=== PATIENT | female | born 1965 | race Caucasian/White ===

== ENCOUNTER 2020-07-07 19:14 | Inpatient (IN) | payer MEDICAID ==
[~2020-07-07] VITALS: Ht 162.6 cm; Wt 82.1 kg
[2020-07-07 20:04] LABS: BASOPHILS 0.4 % (0-2); EOSINOPHILS 2.7 % (0-7); HEMATOCRIT 27.3 % (36.0-48.0); HEMOGLOBIN 8.8 g/dL (12-16); IMMATURE GRANULOCYTES 0.2 % (0-5); LYMPHOCYTES 26.5 % (15-50); MCH 30.8 pg (26.0-34.0); MCHC 32.2 g/dL (31.0-37.0); MCV 95.5 fL (80.0-100.0); MEAN PLATELET VOLUME 10.9 fL (7.4-10.4); MONOCYTES 5.8 % (2-11); NEUTROPHIL ABS# 3.65 10x3/uL (1.56-6.13); NEUTROPHILS 64.4 % (40-80); PLATELET COUNT 176 10x3/uL (130-400); RBC 2.86 10x6/uL (4.00-5.40); RDW 12.7 % (11.5-14.5); WBC 5.7 10x3/uL (4.8-10.8)
[2020-07-07 20:25] LABS: UDS - AMPHET NEGATIVE QUAL (NEGATIVE); UDS - BARB NEGATIVE QUAL (NEGATIVE); UDS - BENZO NEGATIVE QUAL (NEGATIVE); UDS - COCAINE NEGATIVE QUAL (NEGATIVE); UDS - OPIATE NEGATIVE QUAL (NEGATIVE); UDS - PCP NEGATIVE QUAL (NEGATIVE); UDS - THC POSITIVE QUAL (NEGATIVE)
[2020-07-07 20:29] LABS: BACTERIA MANY HPF (NONE SEEN); BILIRUBIN NEGATIVE (NEGATIVE); KETONE NEGATIVE (NEGATIVE); NITRITE POSITIVE (NEGATIVE); UROBILINOGEN NORMAL mg/dL (< 2)
[2020-07-07 20:58] LABS: ALBUMIN 3.6 g/dL (3.4-5.0); ALKALINE PHOSPHATASE 62 U/L (30-120); ALT (SGPT) 17 U/L (10-68); BILIRUBIN - TOTAL 0.32 mg/dL (0.2-1.3); C-REACTIVE PROTEIN 1.1 mg/dL (0.0-0.9); CARBON DIOXIDE 33.1 mmol/L (21.0-32.0); CHLORIDE - SERUM 102 mmol/L (98-107); CREATINE KINASE 69 UL (21-215); CREATININE - SERUM 8.4 mg/dL (0.6-1.3); GLUCOSE 142 mg/dL (74-106); LIPASE 232 U/L (73-393); MAGNESIUM - SERUM 2.5 mg/dL (1.8-2.4); POTASSIUM - SERUM 4.6 mmol/L (3.5-5.1); PRO BNP 1035 pg/mL (0-125); PROTEIN - SERUM 7.7 g/dL (6.4-8.2); SODIUM 140 mmol/L (136-145); THYROID STIMULATING HORMONE 0.84 uIU/mL (0.36-3.74); eGFR NON AFRICAN AMERICAN 5 mL/min (90-120)
[2020-07-07 20:59] LABS: CALC OSMOLALITY 318 mosm/kg (275-300); CALCIUM 12.7 mg/dL (8.5-10.1); TROPONIN-I < 0.017 ng/mL (0.000-0.060); UREA NITROGEN 119 mg/dL (7-18)
[2020-07-07] MEDS ORDERED: PHOSLO667 MG PO (21:06)
[2020-07-07] MEDS ORDERED: ISOSORBIDE DINI20 MG PO (21:07)
[2020-07-07] MEDS ORDERED: FUROSEMIDE20 MG PO (21:07)
[2020-07-07] MEDS ORDERED: ROCALTROL0.5 MCG PO (21:07)
[2020-07-07] MEDS ORDERED: CENTRUM SILVER1 EAC3 PO (21:08)
[2020-07-07] MEDS ORDERED: COREG 3.1253.125 MG PO (21:08)
[2020-07-07] MEDS ORDERED: HYDRALAZINE HCL25 MG PO (21:08)
[2020-07-07] MEDS ORDERED: KLONOPIN1 MG PO (21:09)
[2020-07-07] MEDS ORDERED: SEROQUEL25 MG PO (21:10)
[2020-07-07] MEDS ORDERED: VENTOLIN HFA [SP8 GM INH (22:18)
[2020-07-08] VITALS (7 sets, daily range): BP systolic 128–155; BP diastolic 76–89; BMI 31.1
[2020-07-08 06:14] LABS: BASOPHILS 0.2 % (0-2); EOSINOPHILS 3.7 % (0-7); HEMOGLOBIN 7.9 g/dL (12-16); LYMPHOCYTE ABS# 1.51 10x3/uL (1.18-3.74); LYMPHOCYTES 30.9 % (15-50); MCH 30.4 pg (26.0-34.0); MCHC 31.6 g/dL (31.0-37.0); MCV 96.2 fL (80.0-100.0); MEAN PLATELET VOLUME 11.2 fL (7.4-10.4); MONOCYTES 7.2 % (2-11); NEUTROPHIL ABS# 2.84 10x3/uL (1.56-6.13); PLATELET COUNT 186 10x3/uL (130-400); RDW 12.7 % (11.5-14.5); RETIC 1.08 % (0.45-2.28); WBC 4.9 10x3/uL (4.8-10.8)
[2020-07-08 06:33] LABS: % SATURATION 21 % (15-55); IRON 46 ug/dl (35-150); TOTAL IRON BIND CAPACITY 216 ug/dl (260-445); UNSAT IRON BIND CAPACITY 170 ug/dl (150-375)
[2020-07-08 07:02] LABS: ALBUMIN 3.1 g/dL (3.4-5.0); BILIRUBIN - TOTAL 0.24 mg/dL (0.2-1.3); CALCIUM 11.5 mg/dL (8.5-10.1); CARBON DIOXIDE 30.7 mmol/L (21.0-32.0); MAGNESIUM - SERUM 2.4 mg/dL (1.8-2.4); PHOSPHOROUS 6.3 mg/dL (2.5-4.9); PROTEIN - SERUM 6.6 g/dL (6.4-8.2)
[2020-07-08 07:12] LABS: ANION GAP 10.9 mmol/L (8-16); POTASSIUM - SERUM 3.6 mmol/L (3.5-5.1)
[2020-07-08 08:53] LABS: APTT 28.5 SECONDS (22.8-39.4)
[2020-07-08 08:54] LABS: INR 1.12 (0.85-1.17); PROTIME 13.3 SECONDS (11.6-15.0)
[2020-07-09] VITALS: BP 130/84
[2020-07-09 04:00] VITALS: BP 132/78
[2020-07-09 06:42] LABS: ALBUMIN 2.9 g/dL (3.4-5.0); ANION GAP 12.2 mmol/L (8-16); BILIRUBIN - TOTAL 0.23 mg/dL (0.2-1.3); CALCIUM 10.4 mg/dL (8.5-10.1); CARBON DIOXIDE 26.5 mmol/L (21.0-32.0); CREATININE - SERUM 7.5 mg/dL (0.6-1.3); MAGNESIUM - SERUM 2.5 mg/dL (1.8-2.4); PHOSPHOROUS 6.7 mg/dL (2.5-4.9); POTASSIUM - SERUM 3.7 mmol/L (3.5-5.1); PROTEIN - SERUM 6.3 g/dL (6.4-8.2)
[2020-07-09 07:02] LABS: BASOPHILS 0.2 % (0-2); EOSINOPHILS 3.3 % (0-7); HEMATOCRIT 23.6 % (36.0-48.0); IMMATURE GRANULOCYTES 0.2 % (0-5); LYMPHOCYTE ABS# 1.61 10x3/uL (1.18-3.74); LYMPHOCYTES 35.2 % (15-50); MCH 30.4 pg (26.0-34.0); MCHC 31.8 g/dL (31.0-37.0); MCV 95.5 fL (80.0-100.0); MEAN PLATELET VOLUME 11.1 fL (7.4-10.4); MONOCYTES 8.7 % (2-11); NEUTROPHILS 52.4 % (40-80); PLATELET COUNT 163 10x3/uL (130-400); RBC 2.47 10x6/uL (4.00-5.40); RDW 12.6 % (11.5-14.5); WBC 4.6 10x3/uL (4.8-10.8)
[2020-07-09 07:04] LABS: HEMOGLOBIN 7.5 g/dL (12-16)
[2020-07-09 08:57] VITALS: BP 143/99
[2020-07-09 12:21] VITALS: BP 131/79
--- NOTE | 2020-07-09 13:11 | NUR ---
STARTED 1 UNIT PRBC'S WITH 20G TO RT. F/A WITH NO S/S OF INFECTION/INFILTRATION
[2020-07-09 16:09] VITALS: Ht 162.6 cm; Wt 82.1 kg
[2020-07-09 16:48] VITALS: BP 125/78
[2020-07-09 20:13] VITALS: BP 140/88
[2020-07-10 04:00] VITALS: BP 138/82
[2020-07-10 05:37] LABS: BASOPHILS 0.2 % (0-2); EOSINOPHILS 3.4 % (0-7); HEMATOCRIT 27.8 % (36.0-48.0); HEMOGLOBIN 8.9 g/dL (12-16); LYMPHOCYTE ABS# 1.67 10x3/uL (1.18-3.74); LYMPHOCYTES 37.4 % (15-50); MCH 29.8 pg (26.0-34.0); MEAN PLATELET VOLUME 11.1 fL (7.4-10.4); MONOCYTES 6.9 % (2-11); NEUTROPHIL ABS# 2.33 10x3/uL (1.56-6.13); NEUTROPHILS 52.1 % (40-80); PLATELET COUNT 159 10x3/uL (130-400); RDW 13.5 % (11.5-14.5); WBC 4.5 10x3/uL (4.8-10.8)
[2020-07-10 05:38] LABS: RBC 2.99 10x6/uL (4.00-5.40)
[2020-07-10 06:18] LABS: ALBUMIN 2.9 g/dL (3.4-5.0); ANION GAP 15.8 mmol/L (8-16); BILIRUBIN - TOTAL 0.22 mg/dL (0.2-1.3); CALCIUM 9.4 mg/dL (8.5-10.1); CARBON DIOXIDE 24.4 mmol/L (21.0-32.0); CREATININE - SERUM 7.1 mg/dL (0.6-1.3); MAGNESIUM - SERUM 2.4 mg/dL (1.8-2.4); PHOSPHOROUS 7.3 mg/dL (2.5-4.9); POTASSIUM - SERUM 4.2 mmol/L (3.5-5.1)
[2020-07-10 08:36] VITALS: BP 140/89
[2020-07-10 12:39] VITALS: BP 150/87
[2020-07-10 16:51] VITALS: BP 136/87
--- NOTE | 2020-07-10 19:27 | NUR ---
PATIENT RESTING IN BED WITH NO S/S OF DISTRESS AND DENIES NEEDS AT THIS TIME. BED IN LOWEST POSITION AND CALL LIGHT IN REACH. ENCOURAGED THE PATIENT TO CALL WITH NEEDS.
[2020-07-10 20:15] VITALS: BP 135/92
[2020-07-11 04:00] VITALS: BP 148/79
[2020-07-11 04:40] LABS: BASOPHILS 0.2 % (0-2); EOSINOPHILS 3.4 % (0-7); HEMATOCRIT 30.5 % (36.0-48.0); HEMOGLOBIN 9.8 g/dL (12-16); IMMATURE GRANULOCYTES 0.2 % (0-5); LYMPHOCYTE ABS# 1.21 10x3/uL (1.18-3.74); LYMPHOCYTES 23.9 % (15-50); MCH 29.9 pg (26.0-34.0); MCHC 32.1 g/dL (31.0-37.0); MEAN PLATELET VOLUME 10.9 fL (7.4-10.4); MONOCYTES 7.1 % (2-11); NEUTROPHIL ABS# 3.31 10x3/uL (1.56-6.13); NEUTROPHILS 65.2 % (40-80); PLATELET COUNT 170 10x3/uL (130-400); RBC 3.28 10x6/uL (4.00-5.40); RDW 13.3 % (11.5-14.5); WBC 5.1 10x3/uL (4.8-10.8)
[2020-07-11 05:07] LABS: ANION GAP 16.2 mmol/L (8-16); BILIRUBIN - TOTAL 0.16 mg/dL (0.2-1.3); CALCIUM 9.7 mg/dL (8.5-10.1); CREATININE - SERUM 6.7 mg/dL (0.6-1.3); MAGNESIUM - SERUM 2.5 mg/dL (1.8-2.4); PHOSPHOROUS 6.4 mg/dL (2.5-4.9); POTASSIUM - SERUM 4.2 mmol/L (3.5-5.1); PROTEIN - SERUM 6.8 g/dL (6.4-8.2)
[2020-07-11 08:28] VITALS: BP 140/81
[2020-07-11 12:01] VITALS: BP 137/86
[2020-07-11 16:12] VITALS: BP 128/72
[2020-07-11 23:34] VITALS: BP 177/101
[2020-07-12 01:35] VITALS: BP 144/82
[2020-07-12 06:19] VITALS: BP 143/97
[2020-07-12 06:36] LABS: ALBUMIN 2.6 g/dL (3.4-5.0); ANION GAP 15.5 mmol/L (8-16); BILIRUBIN - TOTAL 0.29 mg/dL (0.2-1.3); CALCIUM 8.8 mg/dL (8.5-10.1); CARBON DIOXIDE 21.8 mmol/L (21.0-32.0); CREATININE - SERUM 6.3 mg/dL (0.6-1.3); MAGNESIUM - SERUM 2.3 mg/dL (1.8-2.4); PHOSPHOROUS 5.9 mg/dL (2.5-4.9); POTASSIUM - SERUM 4.3 mmol/L (3.5-5.1); PROTEIN - SERUM 5.9 g/dL (6.4-8.2)
[2020-07-12 08:00] LABS: BASOPHILS 0.2 % (0-2); HEMATOCRIT 26.6 % (36.0-48.0); HEMOGLOBIN 8.4 g/dL (12-16); IMMATURE GRANULOCYTES 0.2 % (0-5); LYMPHOCYTE ABS# 1.07 10x3/uL (1.18-3.74); LYMPHOCYTES 25.2 % (15-50); MCH 29.6 pg (26.0-34.0); MCHC 31.6 g/dL (31.0-37.0); MCV 93.7 fL (80.0-100.0); MEAN PLATELET VOLUME 11.1 fL (7.4-10.4); MONOCYTES 6.8 % (2-11); NEUTROPHIL ABS# 2.69 10x3/uL (1.56-6.13); NEUTROPHILS 63.6 % (40-80); PLATELET COUNT 150 10x3/uL (130-400); RBC 2.84 10x6/uL (4.00-5.40); RDW 13.2 % (11.5-14.5); WBC 4.2 10x3/uL (4.8-10.8)
[2020-07-12 09:36] VITALS: BP 150/93
[2020-07-12 12:32] VITALS: BP 144/72
[2020-07-12 13:09] LABS: SPE - A/G RATIO 1.2 (0.7-1.7); SPE - ALBUMIN 3.2 g/dL (2.9-4.4); SPE - ALPHA-1 GLOBULIN 0.2 g/dL (0.0-0.4); SPE - ALPHA-2 GLOBULIN 0.6 g/dL (0.4-1.0); SPE - BETA GLOBULIN 0.8 g/dL (0.7-1.3); SPE - M-SPIKE Not Observed g/dL (Not Observed); SPE - TOTAL PROTEIN 5.8 g/dL (6.0-8.5)
[2020-07-12 16:56] VITALS: BP 140/70
[2020-07-12 20:00] VITALS: BP 157/94
[2020-07-13 04:00] VITALS: BP 148/83
--- NOTE | 2020-07-13 07:11 | NUR ---
PATIENT COMPLAINED OF KNEE PAIN AND I NOTIFIED GILBERT MOTA AND HE ORDERED DEREROL 25 MG IV ONE TIME, IT APPEARED TO HELP THE PAIN, SHE APPEARED TO REST WELL THROUGH THE NIGHT
[2020-07-13 07:37] LABS: BASOPHILS 0.2 % (0-2); EOSINOPHILS 3.5 % (0-7); HEMATOCRIT 24.4 % (36.0-48.0); HEMOGLOBIN 7.9 g/dL (12-16); IMMATURE GRANULOCYTES 0.2 % (0-5); LYMPHOCYTE ABS# 1.12 10x3/uL (1.18-3.74); LYMPHOCYTES 27.9 % (15-50); MCH 30.4 pg (26.0-34.0); MCHC 32.4 g/dL (31.0-37.0); MCV 93.8 fL (80.0-100.0); MEAN PLATELET VOLUME 10.8 fL (7.4-10.4); MONOCYTES 8.5 % (2-11); NEUTROPHIL ABS# 2.39 10x3/uL (1.56-6.13); NEUTROPHILS 59.7 % (40-80); PLATELET COUNT 135 10x3/uL (130-400); RDW 13.3 % (11.5-14.5)
[2020-07-13 07:46] LABS: ALBUMIN 2.8 g/dL (3.4-5.0); ANION GAP 17.4 mmol/L (8-16); BILIRUBIN - TOTAL 0.24 mg/dL (0.2-1.3); CALCIUM 8.3 mg/dL (8.5-10.1); CREATININE - SERUM 5.6 mg/dL (0.6-1.3); MAGNESIUM - SERUM 2.4 mg/dL (1.8-2.4); POTASSIUM - SERUM 4.4 mmol/L (3.5-5.1); PROTEIN - SERUM 5.7 g/dL (6.4-8.2)
[2020-07-13 09:55] VITALS: BP 145/84
[2020-07-13 12:06] VITALS: BP 145/86
--- NOTE | 2020-07-13 13:43 | NUR ---
Nutrition follow-up: Diet order: Renal PO intake ~70% average of last 9 meals labs reviewed; PO4: 6.0 +BM Wt: 180# PO intake if fair to good at most meals Will continue to provide food choices and honor food preferences within diet restrictions. RDN follow-up/reassess 07/19/20
[2020-07-13 17:28] VITALS: BP 148/96
[2020-07-13 20:00] VITALS: BP 154/97
--- NOTE | 2020-07-13 21:00 | NUR ---
PT SITTING UP IN BED WITHOUT DISTRESS, AOX4. DENIES NEEDS AT THIS TIME. CL IN REACH
--- NOTE | 2020-07-13 21:09 | NUR ---
0700 BEDSIDE REPORT RECEIVED ASSESSMENT COMPLETE AWAKE ALERT
--- NOTE | 2020-07-13 21:09 | NUR ---
0900 PROVIDED WARM PACKS AND PLACED ON PTS KNEES PT STATED THAT FELT BETTER THAN PAIN MEDS
--- NOTE | 2020-07-13 21:10 | NUR ---
1300 PROVIDED FRESH WARM PACKS FOR PT'S KNEES DAUGHTER REMAINS AT BEDSIDE PROVIDING SUPPORT
[2020-07-14] VITALS: BP 140/79
[2020-07-14 04:00] VITALS: BP 128/75
[2020-07-14 06:55] LABS: BASOPHILS 0.2 % (0-2); EOSINOPHILS 3.6 % (0-7); HEMATOCRIT 26.7 % (36.0-48.0); HEMOGLOBIN 8.6 g/dL (12-16); IMMATURE GRANULOCYTES 0.2 % (0-5); LYMPHOCYTE ABS# 1.22 10x3/uL (1.18-3.74); LYMPHOCYTES 29.2 % (15-50); MCH 30.2 pg (26.0-34.0); MCHC 32.2 g/dL (31.0-37.0); MCV 93.7 fL (80.0-100.0); MEAN PLATELET VOLUME 11.1 fL (7.4-10.4); NEUTROPHIL ABS# 2.37 10x3/uL (1.56-6.13); NEUTROPHILS 56.8 % (40-80); PLATELET COUNT 157 10x3/uL (130-400); RBC 2.85 10x6/uL (4.00-5.40); RDW 13.4 % (11.5-14.5); WBC 4.2 10x3/uL (4.8-10.8)
[2020-07-14 07:25] LABS: ALBUMIN 2.8 g/dL (3.4-5.0); ANION GAP 16.5 mmol/L (8-16); BILIRUBIN - TOTAL 0.19 mg/dL (0.2-1.3); CALCIUM 8.3 mg/dL (8.5-10.1); CREATININE - SERUM 5.4 mg/dL (0.6-1.3); POTASSIUM - SERUM 4.5 mmol/L (3.5-5.1); PROTEIN - SERUM 6.3 g/dL (6.4-8.2)
[2020-07-14 08:38] VITALS: BP 156/98
[2020-07-14 13:20] VITALS: BP 142/103
[2020-07-14 20:00] VITALS: BP 149/90
--- NOTE | 2020-07-14 20:00 | NUR ---
PT SITTING UP IN BED WITHOUT DISTRESS, AOX4. DENIES PAIN OR NEEDS AT THIS TIME. CL IN REACH
[2020-07-15 04:00] VITALS: BP 132/76
[2020-07-15 06:18] LABS: BASOPHILS 0.3 % (0-2); EOSINOPHILS 3.3 % (0-7); HEMATOCRIT 28.2 % (36.0-48.0); HEMOGLOBIN 8.7 g/dL (12-16); IMMATURE GRANULOCYTES 0.3 % (0-5); LYMPHOCYTES 30.5 % (15-50); MCH 29.7 pg (26.0-34.0); MCHC 30.9 g/dL (31.0-37.0); MEAN PLATELET VOLUME 12.1 fL (7.4-10.4); MONOCYTES 8.7 % (2-11); NEUTROPHIL ABS# 2.24 10x3/uL (1.56-6.13); NEUTROPHILS 56.9 % (40-80); PLATELET COUNT 137 10x3/uL (130-400); RBC 2.93 10x6/uL (4.00-5.40); RDW 13.5 % (11.5-14.5); WBC 3.9 10x3/uL (4.8-10.8)
[2020-07-15 06:34] LABS: MCV 96.2 fL (80.0-100.0)
[2020-07-15 06:38] LABS: ALBUMIN 2.8 g/dL (3.4-5.0); ANION GAP 18.7 mmol/L (8-16); BILIRUBIN - TOTAL 0.12 mg/dL (0.2-1.3); CALCIUM 8.1 mg/dL (8.5-10.1); CARBON DIOXIDE 19.3 mmol/L (21.0-32.0); CREATININE - SERUM 4.9 mg/dL (0.6-1.3); PROTEIN - SERUM 6.4 g/dL (6.4-8.2)
--- NOTE | 2020-07-15 07:28 | NUR ---
ALERT AND ORIENTED. ASSESSMENT COMPLETE. CALL ROBBINS AND PERSONAL ITEMS IN REACH. BED LOW. WILL CONTINUE TO MONITOR.
[2020-07-15 08:44] VITALS: BP 151/88
[2020-07-15 12:27] VITALS: BP 132/90
--- NOTE | 2020-07-15 13:42 | MORECARE ---
CASE MANAGEMENT DISCHARGE SUMMARY PATIENT: BETH NEWELL UNIT: [id number] ADM DATE: 07/07/20 AGE: 55 : 65 SEX: F ROOM/BED: D.2224 AUTHOR: BRANDIN,DOC PHYSICIAN: REFERRING PHYSICIAN: NEWTON BECERRA MD DATE OF SERVICE: 07/15/20 Case Management Discharge Planning Summary CT Patient Name: BETH NEWELL Attending MD : BRISA BECERRA, Medical Record: [id number] Encounter : [id number] Facility : [address] [place] [address] Admission Date : 121:01 Center Discharge Date : [address] [place] [address] Date of : DC Plan ID : [id number] Age/Sex/Martia : 55/ F/M Printed on : 07/15/20 13:41 CT DCP Review Details Anticipated D/C: Expected LOS : Case Status : INITIATED - Initial Reviewe: [id number] Alessandra Hernandez Initial Review: 07/07/2020 Planned Disposi: - Final Discharge: - Final Reviewer : : Final Review : DCP Focus Questions & Answers [facility] BETH NEWELL MR#: [id number] /Age/Sex/[id number]-Kql-45 /55/F /M Attending Physician Name: Mariaa [id number] Patient Account:[id number] [facility] Page -1 of 1 All edits/amendments must be made on the electronic document DICTATION DATE: 07/15/20 1341 FAMILY MEDIATOR: MALIKA 07/15/20 1341 RPT#: [id number] DC DATE: STATUS: ADM IN [facility] [address] [place] [address] END OF REPORT
[2020-07-15 17:32] VITALS: BP 160/99
[2020-07-15 20:00] VITALS: BP 132/90
[2020-07-16 04:00] VITALS: BP 133/56
[2020-07-16 05:40] LABS: BASOPHILS 0.5 % (0-2); EOSINOPHILS 2.9 % (0-7); HEMATOCRIT 27.7 % (36.0-48.0); HEMOGLOBIN 8.6 g/dL (12-16); IMMATURE GRANULOCYTES 0.8 % (0-5); LYMPHOCYTE ABS# 1.34 10x3/uL (1.18-3.74); LYMPHOCYTES 34.8 % (15-50); MCH 29.8 pg (26.0-34.0); MCV 95.8 fL (80.0-100.0); MEAN PLATELET VOLUME 11.6 fL (7.4-10.4); MONOCYTES 9.1 % (2-11); NEUTROPHILS 51.9 % (40-80); PLATELET COUNT 148 10x3/uL (130-400); RBC 2.89 10x6/uL (4.00-5.40); RDW 13.6 % (11.5-14.5); WBC 3.9 10x3/uL (4.8-10.8)
[2020-07-16 05:58] LABS: ALBUMIN 2.9 g/dL (3.4-5.0); ANION GAP 18.2 mmol/L (8-16); BILIRUBIN - TOTAL 0.24 mg/dL (0.2-1.3); CALCIUM 7.9 mg/dL (8.5-10.1); CARBON DIOXIDE 20.3 mmol/L (21.0-32.0); CREATININE - SERUM 4.6 mg/dL (0.6-1.3); POTASSIUM - SERUM 4.5 mmol/L (3.5-5.1); PROTEIN - SERUM 6.4 g/dL (6.4-8.2)
--- NOTE | 2020-07-16 06:19 | NUR ---
Pt is sitting in bed watching TV and sipping coffee. Pt c/o discomfort to joints in knees and elbows when coughing but, otherwise, has had no c/o pain to this nurse. Slept well except with checks.
--- NOTE | 2020-07-16 07:58 | NUR ---
ALERT AND ORIENTED. ASSESSMENT COMPLETE. BED LOW. CALL ROBBINS AND PERSONAL ITEMS IN REACH. WILL CONTINUE TO MONITOR.
[2020-07-16 08:02] VITALS: BP 156/98
--- NOTE | 2020-07-16 13:14 | NUR ---
IV REMOVED FROM RFA FOR DC WITH TIP INTACT. TELE REMOVED AND RETURNED TO [facility]ULO AT MONITORS. PATIENT WAITING RIDE AND DC PAPERWORK. PATIENT STATES IF UROLOGY DOESN'T CALL BACK WITH AN APPOINTMENT PRIOR TO RIDE COMING TO HOSPITAL, SHE WILL CALL SUNDAY. DOES NOT WANT TO WAIT FOR CALL BACK. DC NURSES SUPERVISOR [employer] AND BUSINESS [employer] VICE PRESIDENT HUBERT NOTIFIED.
--- NOTE | 2020-07-16 14:25 | NUR ---
DC EDUCATION PROVIDED BOTH WRITTEN AND VERBAL. VERBALIZED UNDERSTANDING. DENIES FURTHER QUESTIONS. WAITING RIDE.
--- NOTE | 2020-07-16 15:20 | NUR ---
PATIENT DC HOME WITH DAUGHTER WITH ALL BELONGINGS.
--- NOTE | 2020-07-17 17:52 | MORECARE ---
CASE MANAGEMENT DISCHARGE SUMMARY PATIENT: BETH NEWELL UNIT: [id number] ADM DATE: 07/07/20 AGE: 55 : 65 SEX: F ROOM/BED: D.2224 AUTHOR: BRANDIN,DOC PHYSICIAN: REFERRING PHYSICIAN: NEWTON BECERRA MD DATE OF SERVICE: 07/17/20 Case Management Discharge Planning Summary CT Patient Name: BETH NEWELL Attending MD : BRISA BECERRA, Medical Record: [id number] Encounter : [id number] Facility : [address] [place] [address] Admission Date : 121:01 Center Discharge Date : 07/16/[address] [place] [address] Date of : DC Plan ID : [id number] Age/Sex/Martia : 55/ F/M Printed on : 07/17/20 17:50 CT DCP Review Details Anticipated D/C: Expected LOS : Case Status : INITIATED - Initial Reviewe: [id number] Alessandra Hernandez Initial Review: 07/07/2020 Planned Disposi: - Final Discharge: - Final Reviewer : : Final Review : DCP [employer] Questions & Answers [facility] BETH NEWELL MR#: [id number] /Age/Sex/Hqqwod55-Dpq-13 /55/F /M Attending Physician Name: HERNAN [id number] Patient Account:[id number] [facility] Page -1 of 1 All edits/amendments must be made on the electronic document DICTATION DATE: 07/17/201749 PSYCHIATRIC ARNP: DM 07/17/201749 RPT#: [id number] DC DATE:07/16/20 STATUS: [place] [id number] END OF REPORT
== END 2020-07-16 15:21 | disposition home or self-care (01) | DRG 292 ==
LOC: D.ER 19:14 → D.MS 21:01
PROVIDERS: Emergency Medicine; Family Medicine; Internal Medicine Nephrology; ADMIT Family Medicine; ATTEND Family Medicine
DX: I13.0 Hypertensive heart and chronic kidney disease with heart failure and stage 1 through stage 4 chronic kidney disease, or unspecified chronic kidney disease (principal); N17.9 Acute kidney failure, unspecified; N39.0 Urinary tract infection, site not specified; N18.30 Chronic kidney disease, stage 3 unspecified; I50.9 Heart failure, unspecified; D64.9 Anemia, unspecified; E83.52 Hypercalcemia; F12.90 Cannabis use, unspecified, uncomplicated; F41.9 Anxiety disorder, unspecified; E83.41 Hypermagnesemia; M81.0 Age-related osteoporosis without current pathological fracture